=== PATIENT | female | born 1945 | race Two or more races ===

== ENCOUNTER → 2024-10-25 | Outpatient (CLI) | payer MEDICARE, MEDICAID, SELFPAY ==
[2024-10-25 09:46] LABS: Basophils # (Auto) 0.1 Thou/mm3 (0.0-0.2); Basophils % (Auto) 1 % (0-2.5); Eosinophils # (Auto) 0.2 Thou/mm3 (0.0-0.5); Eosinophils % (Auto) 3 % (0-10); Hematocrit 36.7 % (36.0-46.0); Hemoglobin 11.5 g/dL (12.0-16.0); Immature Granulocytes Auto 0.03 Thou/mm3 (0.00-0.00); Lymphocytes # (Auto) 2.1 Thou/mm3 (1.0-4.8); Lymphocytes % (Auto) 28 % (10-50); Mean Corpuscular HGB Conc 31.3 g/dl (31.0-37.0); Mean Corpuscular Hemoglobin 29.9 pg (25.0-35.0); Mean Corpuscular Volume 96 fL (80-100); Monocytes # (Auto) 0.6 Thou/mm3 (0.0-0.8); Monocytes % (Auto) 8 % (0-12); Neutrophils # (Auto) 4.7 Thou/mm3 (1.8-7.7); Neutrophils % (Auto) 61 % (37-80); Nucleated Red Blood Cell # 0.00 Thou/mm3 (0.00-0.00); Nucleated Red Blood Cell % 0 /100 WBC (0); Platelet Count 293 Thou/mm3 (140-440); RDW Standard Deviation 49.1 fL (36.4-46.3); Red Blood Count 3.84 Miln/mm3 (4.00-5.20); White Blood Count 7.7 Thou/mm3 (3.6-11.0)
[2024-10-25 09:53] LABS: Glucose Estimated Average 140 mg/dL (80-131); Hemoglobin A1C 6.5 % Hgb (4.8-6.0)
[2024-10-25 10:03] LABS: B-Type Natriuretic Peptide 198 pg/mL (0-100)
[2024-10-25 10:16] LABS: Alanine Aminotransferase 7 U/L (10-49); Albumin, Serum 4.4 gm/dL (3.4-4.8); Albumin/Globulin Ratio 1.6 (1.2-2.2); Alkaline Phosphatase 109 U/L (46-116); Anion Gap 11 (7-16); Aspartate Amino Transferase 14 U/L (0-34); BUN/Creatinine Ratio 18 Ratio (12-20); Bilirubin,Direct 0.1 mg/dL (0.0-0.3); Bilirubin,Total 0.4 mg/dL (0.3-1.2); Blood Urea Nitrogen 23 mg/dL (9-23); Calcium 8.7 mg/dL (8.3-10.6); Calcium (Corrected) 8.7 mg/dL (8.5-10.1); Carbon Dioxide 25.3 mMol/L (20.0-31.0); Chloride 110 mMol/L (98-107); Creatinine (Component) 1.3 mg/dL (0.6-1.3); Free T4 (Free Thyroxine) 1.15 ng/dL (0.89-1.76); Globulin 2.7 gm/dL (2.3-3.5); Glucose 97 mg/dL (74-106); Osmolality,Calculated 294 (275-295); Potassium 4.2 mMol/L (3.4-5.1); Sodium 146 mMol/L (136-145); Thyroid Stimulating Hormone 2.00 uIU/mL (0.55-4.78); Total Protein 7.1 gm/dL (5.7-8.2); eGFR 42 See Note
[2024-10-25 10:29] LABS: Cardiac Risk Estimate 3.3 RATIO (3.7-5.6); Cholesterol 144 mg/dL (132-200); HDL Cholesterol 44 mg/dL (40-60); LDL Cholesterol,Calculated 64 mg/dL (0-130); Triglycerides 181 mg/dL (30-150)
[2024-10-31 06:34] LABS: Direct LDL* 78 mg/dL (<100)
== END | disposition home or self-care (01) ==
LOC: COPL 08:43
PROVIDERS: PCP Family Medicine; Referring Provider Family Medicine; Visit Provider Internal Medicine Cardiovascular Disease
DX: E78.2 Mixed hyperlipidemia (principal); I50.20 Unspecified systolic (congestive) heart failure; I11.0 Hypertensive heart disease with heart failure; R73.03 Prediabetes
CPT/HCPCS: 36415; 80053; 80061; 82248; 83036; 83721; 83880; 84439; 84443; 85025

== ENCOUNTER → 2024-12-02 | Outpatient (CLI) | payer MEDICARE, MEDICAID, SELFPAY ==
[2024-12-02 10:30] LABS: Anion Gap 8 (7-16); BUN/Creatinine Ratio 18 Ratio (12-20); Blood Urea Nitrogen 25 mg/dL (9-23); Calcium 8.3 mg/dL (8.3-10.6); Carbon Dioxide 30.4 mMol/L (20.0-31.0); Chloride 105 mMol/L (98-107); Creatinine (Component) 1.4 mg/dL (0.6-1.3); Glucose 89 mg/dL (74-106); Osmolality,Calculated 288 (275-295); Potassium 4.2 mMol/L (3.4-5.1); Sodium 143 mMol/L (136-145); eGFR 39 See Note
[2024-12-02 10:31] LABS: B-Type Natriuretic Peptide 411 pg/mL (0-100)
== END | disposition home or self-care (01) ==
LOC: COPL 09:04
PROVIDERS: PCP Family Medicine; Referring Provider Internal Medicine Cardiovascular Disease; Visit Provider Internal Medicine Cardiovascular Disease
DX: I11.0 Hypertensive heart disease with heart failure (principal); I50.9 Heart failure, unspecified; E78.5 Hyperlipidemia, unspecified
CPT/HCPCS: 36415; 80048; 83880